=== PATIENT | male | born 1960 | race African-American/Black ===

== ENCOUNTER 2017-05-01 01:11 | Observation (INO) | payer SELFPAY ==
[~2017-05-01] VITALS: Ht 180.3 cm; Wt 89.0 kg
[2017-05-01 01:17] VITALS: BP 160/95; PULSE 72; RESP 18; TEMP 97.9; O2SAT 98
[2017-05-01] MEDS ORDERED: ENAL20TA PO (01:26)
[2017-05-01] MEDS ORDERED: AMLO5TAB2 PO (01:26)
[2017-05-01] MEDS ORDERED: ATEN50TA PO (01:26)
[2017-05-01 01:52] LABS: AUTOMATED NEUTROPHIL # 2.2 TH/MM3 (1.8-7.7); BASOPHIL % 0.6 % (0.0-2.0); EOSINOPHIL # 0.2 TH/MM3 (0-0.4); EOSINOPHIL % 2.8 % (0.0-4.0); HEMATOCRIT 45.6 % (39.0-51.0); HEMO FLAGS DIFF FINAL; LYMPH % 47.4 % (9.0-44.0); LYMPHOCYTE # 2.8 TH/MM3 (1.0-4.8); MEAN CELL VOLUME 83.7 FL (80.0-100.0); MEAN CORPUSCULAR HEMOGLOBIN 27.3 PG (27.0-34.0); MEAN CORPUSCULAR HGB CONC 32.7 % (32.0-36.0); NEUT % 37.2 % (16.0-70.0); PLATELET COUNT 239 TH/MM3 (150-450); RED BLOOD COUNT 5.45 MIL/MM3 (4.50-5.90); RED CELL DISTRIBUTION WIDTH 14.7 % (11.6-17.2); WHITE BLOOD COUNT 5.8 TH/MM3 (4.0-11.0)
--- NOTE | 2017-05-01 01:59 | RADRPT ---
EXAM DATE/TIME: 05/01/2017 01:44 [facility] COMPARISON: No previous studies available for comparison. INDICATIONS : Palpitations. MEDICAL HISTORY : Hypertension. SURGICAL HISTORY : None. ENCOUNTER: Initial ACUITY: 1 day PAIN SCORE: 0/10 LOCATION: Bilateral chest FINDINGS: A single view of the chest demonstrates the lungs to be symmetrically aerated without evidence of mas s, infiltrate or effusion. The cardiomediastinal contours are unremarkable. Osseous structures are intact. CONCLUSION: The lungs are clear. Avni Topete MD on May 01, 2017 at 1:57 Board Certified Radiologist. This report was verified electronically.
[2017-05-01 02:07] LABS: ALT (GPT) 17 U/L (12-78); ANION GAP 5 MEQ/L (5-15); AST (GOT) 17 U/L (15-37); BLOOD UREA NITROGEN 12 MG/DL (7-18); CHLORIDE 100 MEQ/L (98-107); GLOMERULAR FILTRATION RATE 64 ML/MIN (>89); POTASSIUM 3.5 MEQ/L (3.5-5.1); SODIUM (NA) 137 MEQ/L (136-145)
[2017-05-01 02:11] LABS: ALKALINE PHOSPHATASE 82 U/L (45-117); TOTAL BILIRUBIN ADULT 0.3 MG/DL (0.2-1.0)
--- NOTE | 2017-05-01 02:21 | PD ---
HPI Chief Complaint: Cardiac Complaint Time Seen by Provider: 01:22 Travel History International Travel<30 days: No Contact w/Intl Traveler<30days: [place] Traveled to: [place] Traveled to known affect area: No History of Present Illness HPI Is a 56-year-old otherwise healthy man presents to the emergency department after he woke up from sleep with palpitations. Denies any anxiety. No chest pain. No shortness of breath. No dizziness. Itching otherwise had been feeling completely well and healthy. His a history of high blood pressure. No other complaints. Is better now. History Past Medical History Narrative Medical Hypertension Past Surgical History Surgical History: No Previous Surgery Social History Alcohol Use: No Tobacco Use: No Allergies-Medications (Allergen,Severity, Reaction): Coded Allergies: No Known Allergies (Unverified , 05/01/17) Reported Meds & Prescriptions Reported Meds & Active Scripts Active Reported Enalapril (Enalapril Maleate) 20 Mg Tab 20 Mg PO BID Amlodipine (Amlodipine Besylate) 5 Mg Tab 5 Mg PO DAILY Atenolol 50 Mg Tab 50 Mg PO DAILY Review of Systems Except as stated in HPI: all other systems reviewed are Neg Physical Exam Narrative GENERAL: 56-year-old man, no acute distress. SKIN: Focused skin assessment warm/dry. HEAD: Atraumatic. Normocephalic. EYES: Pupils equal and round. No scleral icterus. No injection or drainage. ENT: No nasal bleeding or discharge. Mucous membranes pink and moist. NECK: Trachea midline. No JVD. CARDIOVASCULAR: Regular rate and rhythm. No murmur appreciated. RESPIRATORY: No accessory muscle use. Clear to auscultation. Breath sounds equal bilaterally. GASTROINTESTINAL: Abdomen soft, non-tender, nondistended. Hepatic and splenic margins not palpable. MUSCULOSKELETAL: No obvious deformities. No clubbing. No cyanosis. No edema. NEUROLOGICAL: Awake and alert. No obvious cranial nerve deficits. Motor grossly within normal limits. Normal speech. PSYCHIATRIC: Appropriate mood and affect; insight and judgment normal. Data Data Last Documented VS Vital Signs Date Time Temp Pulse Resp B/P (MAP) Pulse Ox O2 Delivery O2 Flow Rate FiO2 05/01/17 01:21 72 05/01/17 01:17 97.9 18 160/95 (116) 98 Orders Orders Chest, Single Ap (05/01/17 ) Complete Blood Count With Diff (05/01/17 01:29) Comprehensive Metabolic Panel (05/01/17 01:29) Troponin I (05/01/17 01:29) Electrocardiogram (05/01/17 ) Iv Access Insert/Monitor (05/01/17 01:29) Troponin I (05/01/17 04:30) Labs Laboratory Tests Test 05/01/17 01:34 05/01/17 04:30 White Blood Count 5.8 TH/MM3 Red Blood Count 5.45 MIL/MM3 Hemoglobin 14.9 GM/DL Hematocrit 45.6 % Mean Corpuscular Volume 83.7 FL Mean Corpuscular Hemoglobin 27.3 PG Mean Corpuscular Hemoglobin Concent 32.7 % Red Cell Distribution Width 14.7 % Platelet Count 239 TH/MM3 Mean Platelet Volume 8.4 FL Neutrophils (%) (Auto) 37.2 % Lymphocytes (%) (Auto) 47.4 % Monocytes (%) (Auto) 12.0 % Eosinophils (%) (Auto) 2.8 % Basophils (%) (Auto) 0.6 % Neutrophils # (Auto) 2.2 TH/MM3 Lymphocytes # (Auto) 2.8 TH/MM3 Monocytes # (Auto) 0.7 TH/MM3 Eosinophils # (Auto) 0.2 TH/MM3 Basophils # (Auto) 0.0 TH/MM3 CBC Comment DIFF FINAL Differential Comment Blood Urea Nitrogen 12 MG/DL Creatinine 1.18 MG/DL Random Glucose 149 MG/DL Total Protein 8.4 GM/DL Albumin 3.8 GM/DL Calcium Level 9.2 MG/DL Alkaline Phosphatase 82 U/L Aspartate Amino Transf (AST/SGOT) 17 U/L Alanine Aminotransferase (ALT/SGPT) 17 U/L Total Bilirubin 0.3 MG/DL Sodium Level 137 MEQ/L Potassium Level 3.5 MEQ/L Chloride Level 100 MEQ/L Carbon Dioxide Level 32.0 MEQ/L Anion Gap 5 MEQ/L Estimat Glomerular Filtration Rate 64 ML/MIN Troponin I 0.09 NG/ML 0.11 NG/ML [facility] Medical Decision Making Medical Screen Exam Complete: Yes Emergency Medical Condition: Yes Interpretation(s) My review of EKG: Normal sinus rhythm at a rate of 72, leftward axis, normal intervals, no definite evidence of acute ischemia. LABS: CBC is unremarkable Differential Diagnosis Palpitations, arrhythmia, V. tach, V. fib, SVT, PE, other Narrative Course Medical decision making This is a 56 old man a pad palpitations with some minimal chest discomfort woke him up from sleep. Troponins remained minimally elevated. I'm not sure this is related or not. Possibly some and a ventricular arrhythmia. Much less likely ACS. Plan on admitting for serial cardiac enzymes. Anson Rose MD May 01, 2017 02:21
[2017-05-01] MEDS ORDERED: HYDR25TA5 PO (05:56)
[2017-05-01] MEDS ORDERED: ENOXAPARIN SODIUM 40 MG/0.4 ML SYRINGE SQ SCH (06:00)
[2017-05-01] MEDS ORDERED: NITROGLYCERIN 0.4 MG SL 25 TABS/BTL SL PRN (06:00)
[2017-05-01] MEDS ORDERED: ACETAMINOPHEN 500 MG CPLT PO PRN (06:00)
--- NOTE | 2017-05-01 06:15 | HHI.HP ---
HPI Service Family Medicine Primary Care Physician Unknown Admission Diagnosis palpitations, elevated troponin Diagnoses: International Travel<30 Days: No Contact w/Intl Traveler<30days: [place] Traveled to: [facility] Known Affected Area: No History of Present Illness 56 yr old [place] M w/ HTN presents to the ED with palpitations. Reports that he had tea w/ salt this evening, felt his blood pressure going up. Took his BP, 170/95, took analapril, decreased BP to 135/85. Feel asleep and around 1 am this morning, he woke up with palpitations. [place] his heart rate increased and tried deep breathing with improvement. His sister became concerned and called 911. He took an aspirin while on the way to the ED. Denies CP, SOB, headache, and vision changes. No hx of [place] or stroke. Never smoker and denies drug use. He reports having a similar episode 12 years ago when he was going through a divorce. He feels like this recent episode could have possibly been precipitated by stress from an unpleasant phone call he had before going to bed. He is unsure if he had anxiety or a panic attack. He is here visiting from [place]. He has been in the [place] for about a week and staying with his sister. (Gaby Sher MD R1) Review of Systems Other per HPI (Gaby Sher MD R1) Past Family Social History Past Medical History HTN Past Surgical History None (Gaby Sher MD R1) Allergies: Coded Allergies: No Known Allergies (Unverified , 05/01/17) Family History Father- HTN, DM, at 70 from [place] Mother- HTN, still alive, 76 Social History From [place], visiting sister, denies smoking, alcohol use, and drug use (Gaby Sher MD R1) Physical Exam Vital Signs Vital Signs Date Time Temp Pulse Resp B/P (MAP) Pulse Ox O2 Delivery O2 Flow Rate FiO2 05/01/17 01:21 72 05/01/17 01:17 97.9 72 18 160/95 (116) 98 Physical Exam GENERAL: Well-nourished, well-developed patient, pleasant, in NAD SKIN: Warm and dry. EYES: PERRLA, EOMI CARDIOVASCULAR: RRR, no m/r/g RESPIRATORY: CTAB, no crackles or wheezes GASTROINTESTINAL: Abdomen soft, non-tender, nondistended, positive BS EXTREMITIES: No cyanosis, or edema. Laboratory Laboratory Tests Test 05/01/17 01:34 05/01/17 04:30 White Blood Count 5.8 Red Blood Count 5.45 Hemoglobin 14.9 Hematocrit 45.6 Mean Corpuscular Volume 83.7 Mean Corpuscular Hemoglobin 27.3 Mean Corpuscular Hemoglobin Concent 32.7 Red Cell Distribution Width 14.7 Platelet Count 239 Mean Platelet Volume 8.4 Neutrophils (%) (Auto) 37.2 Lymphocytes (%) (Auto) 47.4 Monocytes (%) (Auto) 12.0 Eosinophils (%) (Auto) 2.8 Basophils (%) (Auto) 0.6 Neutrophils # (Auto) 2.2 Lymphocytes # (Auto) 2.8 Monocytes # (Auto) 0.7 Eosinophils # (Auto) 0.2 Basophils # (Auto) 0.0 CBC Comment DIFF FINAL Differential Comment Blood Urea Nitrogen 12 Creatinine 1.18 Random Glucose 149 Total Protein 8.4 Albumin 3.8 Calcium Level 9.2 Alkaline Phosphatase 82 Aspartate Amino Transf (AST/SGOT) 17 Alanine Aminotransferase (ALT/SGPT) 17 Total Bilirubin 0.3 Sodium Level 137 Potassium Level 3.5 Chloride Level 100 Carbon Dioxide Level 32.0 Anion Gap 5 Estimat Glomerular Filtration Rate 64 Troponin I 0.09 0.11 (Gaby Sher MD R1) Result Diagram: 05/01/17 0134 05/01/17 0134 Imaging Last 24 hours Impressions Chest X-Ray 05/01/17 0000 Signed Impressions: Service Date/Time: Monday, May 01, 2017 01:44 - CONCLUSION: The lungs are clear. Avni Topete MD (Gaby Sher MD R1) Caprini VTE Risk Assessment Caprini VTE Risk Assessment: No/Low Risk (score <= 1) Caprini Risk Assessment Model Point Value = 1 Point Value = 2 Point Value = 3 Point Value = 5 Age 41-60 Minor surgery BMI > 25 kg/m2 Swollen legs Varicose veins or History of unexplained or recurrent spontaneous Oral contraceptives or hormone replacement Sepsis (< 1 month) Serious lung disease, including pneumonia (< 1 month) Abnormal pulmonary function Acute myocardial infarction Congestive heart failure (< 1 month) History of inflammatory bowel disease Medical patient at bed rest Age 61-74 Arthroscopic surgery Major open surgery (> 45 min) Laparoscopic surgery (> 45 min) Malignancy Confined to bed (> 72 hours) Immobilizing plaster cast Central venous access Age >= 75 History of VTE Family history of VTE Factor V Leiden Prothrombin [id number] Lupus anticoagulant Anticardiolipin antibodies Elevated serum homocysteine Heparin-induced thrombocytopenia Other congenital or acquired thrombophilia Stroke (< 1 month) Elective arthroplasty Hip, pelvis, or leg fracture Acute spinal cord injury (< 1 month) Prophylaxis Regimen Total Risk Factor Score Risk Level Prophylaxis Regimen 0-1 Low Early ambulation 2 Moderate Order ONE of the following: *Sequential Compression Device (SCD) *Heparin 5000 units SQ BID 3-4 Higher Order ONE of the following medications: *Heparin 5000 units SQ TID *Enoxaparin/Lovenox 40 mg SQ daily (WT < 150 kg, CrCl > 30 mL/min) *Enoxaparin/Lovenox 30 mg SQ daily (WT < 150 kg, CrCl > 10-29 mL/min) *Enoxaparin/Lovenox 30 mg SQ BID (WT < 150 kg, CrCl > 30 mL/min) AND/OR *Sequential Compression Device (SCD) 5 or more Highest Order ONE of the following medications: *Heparin 5000 units SQ TID (Preferred with Epidurals) *Enoxaparin/Lovenox 40 mg SQ daily (WT < 150 kg, CrCl > 30 mL/min) *Enoxaparin/Lovenox 30 mg SQ daily (WT < 150 kg, CrCl > 10-29 mL/min) *Enoxaparin/Lovenox 30 mg SQ BID (WT < 150 kg, CrCl > 30 mL/min) AND *Sequential Compression Device (SCD) (Gaby Sher MD R1) Assessment and Plan Assessment and Plan 56 yr old M w/ HTN admitted for cardiac observation, rule out ACS Code Status Full Code Discussed Condition With Dr. Rose and Dr. Peterson (Gaby Sher MD R1) Problem List: (1) Heart palpitations ICD Codes: R00.2 - Palpitations Plan: Stable. No active chest pain. -EKG in ED - normal -CXR normal -Troponin elevated 0.09, 0.11 -D-dimer 0.35 wnl -CBC and BMP wnl -BNP pending -UDS pening -Mg pending -will continue to trend troponin with EKG, consider cardiology consult -Nitroglycerin 0.4 mg SL q5m PRN angina (2) HTN (hypertension) ICD Codes: I10 - Essential (primary) hypertension Plan: Continue home HTN meds -Amlodipine 5mg PO daily -Atenolol 50 mg PO daily -Enalapril 20 mg PO BID -HCTZ 25 mg PO daily (3) Nutrition, metabolism, and development symptoms ICD Codes: R63.8 - Other symptoms and signs concerning food and fluid intake Plan: Fluids: none Diet: heart healthy diet Other: vitals q4h, monitor I & Os, cardiac monitoring/telemetry DVT ppx: lovenox 40 mg sq daily (Gaby Sher MD R1) Gaby Sher MD R1 May 01, 2017 06:15 Lena Guadarrama MD May 01, 2017 14:24
[2017-05-01 06:18] VITALS: BP 132/78; PULSE 88; RESP 18; O2SAT 99
[2017-05-01 06:34] VITALS: BP 133/79; PULSE 66; RESP 18; TEMP 96.4; O2SAT 98
--- NOTE | 2017-05-01 08:11 | HHI.FPPN ---
Subjective Subjective Patient seen and examined with the resident team. Case reviewed and discussed Please refer to resident H&P for further details regarding HPI, ROS, PMH, SurgHx , Fh and SocHx In summary, patient is a 56yoM non-smoker with a history of HTN Patient reportedly took his BP at home when he felt like it was elevated and found it to be 170/95, BP improved later that day Around 0100 woke up to palpitations, patient felt symptomatic for about 15-20 minutes Deep breathing seemed to help Denied chest pain, no shortness of breath Asymptomatic at time of encounter. [facility] Objective Objective Last Impressions Chest X-Ray 05/01/17 0000 Signed Impressions: Service Date/Time: Monday, May 01, 2017 01:44 - CONCLUSION: The lungs are clear. Avni Topete MD Laboratory Tests - Abnormals Test 05/01/17 01:34 05/01/17 04:30 05/01/17 06:15 Lymphocytes (%) (Auto) 47.4 % Monocytes (%) (Auto) 12.0 % Random Glucose 149 MG/DL Total Protein 8.4 GM/DL Estimat Glomerular Filtration Rate 64 ML/MIN Troponin I 0.09 NG/ML 0.11 NG/ML Vital Signs 05/01/17 05/01/17 05/01/17 05/01/17 01:17 01:21 06:18 06:34 Temp 97.9 96.4 Pulse 72 72 88 66 Resp 18 18 18 B/P (MAP) 160/95 (116) 132/78 (96) 133/79 (97) Pulse Ox 98 99 98 O2 Delivery Room Air 05/01/17 06:50 B/P (MAP) Physical exam GENERAL: wdwn male, sitting up in bed, NAD SKIN: Warm and dry. NO rashes, lesions HEAD: Normocephalic. AT EYES: No scleral icterus. No injection or drainage. ENT: OP clear. MMM NECK: Supple, trachea midline. No JVD or lymphadenopathy. CARDIOVASCULAR: Regular rate and rhythm without murmurs, gallops, or rubs. RESPIRATORY: Breath sounds equal bilaterally. No accessory muscle use. GASTROINTESTINAL: Abdomen soft, non-tender, nondistended. MUSCULOSKELETAL: No cyanosis, or edema. No calf tenderness BACK: Nontender without obvious deformity. No CVA tenderness. NEURO: Awake and alert. Normal speech. CN grossly intact. Motor and sensory intact and equal bilaterally. Assessment Assessment 56yoM with: Palpitations Elevated troponin HTN Hyperglycemia PLAN PLAN Trend serial CE Telemetry monitoring UDS 2D echo Check TSH, mag level Cardiology consultation, appreciate recs Resume home meds lovenox for DVT proph Patient seen and examined with the resident team this morning. Case reviewed and discussed Agree with plan of care as discussed with me and documented in the resident note. Lena Guadarrama MD May 01, 2017 08:11
[2017-05-01 08:49] VITALS: BP 153/95; PULSE 71; RESP 20; TEMP 98.2; O2SAT 100
[2017-05-01] MEDS ORDERED: amLODIPine BESYLATE 5 MG TAB PO SCH (09:00)
[2017-05-01] MEDS ORDERED: HYDROCHLOROTHIAZIDE 25 MG TAB PO SCH (09:00)
[2017-05-01] MEDS ORDERED: ENALAPRIL MALEATE 10 MG TAB PO SCH (09:00)
[2017-05-01] MEDS ORDERED: ATENOLOL 50 MG TAB PO SCH (09:00)
[2017-05-01 09:44] LABS: HDL CHOLESTEROL 43.1 MG/DL (40.0-60.0)
--- NOTE | 2017-05-01 12:39 | EKG ---
Date Performed: 05/01/2017 Time Performed: 06:15:10 PTAGE: 56 years EKG: Sinus rhythm LEFT AXIS DEVIATION INCOMPLETE RIGHT BUNDLE BRANCH BLOCK ABNORMAL ECG PREVIOUS TRACING 05/01/17 Since previous tracing, no significant change. DOCTOR: Berhane Wilson Interpretating Date/Time 05/01/2017 12:38:31
--- NOTE | 2017-05-01 12:39 | EKG ---
Date Performed: 05/01/2017 Time Performed: 01:20:10 PTAGE: 56 years EKG: Sinus rhythm MARKED LEFT AXIS DEVIATION POSSIBLE RIGHT VENTRICULAR CONDUCTION DELAY ABNORMAL ECG NO PREVIOUS TRACING DOCTOR: Berhane Wilson Interpretating Date/Time 05/01/2017 12:37:47
[2017-05-01 12:57] VITALS: BP 148/89; PULSE 64; RESP 20; TEMP 98; O2SAT 100
--- NOTE | 2017-05-01 13:04 | MB ---
cc: JP WEAVER MD DATE OF CONSULTATION: 05/01/2017 REASON FOR CONSULTATION: Elevated troponin. HISTORY OF PRESENT ILLNESS The patient is a very pleasant 56-year-old gentleman from [place] who presented with a sensation of his blood pressure going up and palpitations, and he did note some possible anxiety. He presents to the emergency department where initial blood pressures were elevated to 160/95 and his troponins were mildly elevated. Currently he is feeling much better asymptomatic. He has had no chest pain with this episode at all. No more palpitations, lightheadedness, dizziness or syncope. PAST MEDICAL HISTORY Hypertension / anxiety. SOCIAL HISTORY: No alcohol or smoking. CURRENT MEDICATIONS 1. Aspirin 81 milligrams daily. 2. Norvasc 5 mg daily 3. Atenolol 50 mg daily. 4. Vasotec 20 mg b.i.d. ALLERGIES: NO KNOWN DRUG ALLERGIES. PHYSICAL EXAMINATION VITAL SIGNS: Afebrile, pulse 71, respiratory 20, BP 150/95 sating 100. General: Pleasant, fit-appearing -[place] gentleman in no distress. Neck: No JVD. Lungs: Clear to auscultation bilaterally. Cardiovascular: Regular rate and rhythm, no murmurs appreciated. Abdomen: Benign. Extremities: No edema. LABORATORY DATA Sodium 137, potassium 3.5, chloride 100, bicarb 32.0, BUN 12, creatinine 1.18, glucose 149, troponin 0.09, 0.11. EKG shows sinus rhythm with no acute ST or T-wave changes. IMPRESSION: 1. Elevated troponin. The patient's mildly elevated troponin is likely due to his acute hypertension and will have him undergo a nuclear stress test to exclude coronary artery disease. 2. Palpitations. The patient has been on conveyor monitor since last night and thus far has not had any dysrhythmia. This can likely be further worked up as an outpatient. Should the patient's nuclear stress test return to normal, he can be discharged from my standpoint. Thank you again for the opportunity to participate in this patient's care. Jp Weaver MD [facility] /11:37 AM /12:56 PM
[2017-05-01] MEDS ORDERED: REGADENOSON INJ 0.4 MG/5 ML SYR ONE (15:05)
--- NOTE | 2017-05-01 16:41 | RADRPT ---
EXAM DATE/TIME: 05/01/2017 14:32 [facility] COMPARISON: No previous studies available for comparison. INDICATIONS : Palpatations and anxious feeling with elevated blood pressure. Angina. DOSE: 27.2 mCi Tc99m Myoview at stress. 8.5 mCi Tc99m Myoview at rest. 0.4 mg Lexiscan STRESS SYMPTOMS: Dyspnea and headache. EJECTION FRACTION: 57% MEDICAL HISTORY : Hypertension. SURGICAL HISTORY : None. ENCOUNTER: Initial ACUITY: 1 day PAIN SCALE: 0/10 LOCATION: Bilateral chest TECHNIQUE: The patient underwent pharmacologic stress with infusion of prescribed dose. Continuous ECG tracing was monitored during stress. Gated SPECT imaging was performed after stress and conventional SPECT i maging was performed at rest. The examination was performed on a SPECT/CT scanner, both attenuation and non-corrected datasets were reviewed. FINDINGS: DISTRIBUTION: The maximum perfused segment at stress is in the lateral wall. There is a summed stress score of zero . PERFUSION STUDY: The pattern of perfusion at stress is within normal limits. GATED STUDY: There is intact wall motion and thickening without hypokinetic or dyskinetic segments. CONCLUSION: 1. No fixed or reversible wall defects to suggest ischemia or infarction. 2. Normal wall motion and the calculated ejection fraction. RISK CATEGORY: Low (<1% Annual Mortality Rate) Henrique Colin MD on May 01, 2017 at 16:37 Board Certified Radiologist. This report was verified electronically.
--- NOTE | 2017-05-01 17:42 | HHI.DCPOC ---
Discharge Care Plan Diagnosis: (1) Heart palpitations (2) HTN (hypertension) Goals to Promote Your Health * To prevent worsening of your condition and complications * To maintain your health at the optimal level Directions to Meet Your Goals Take your medications as prescribed Follow your dietary instruction Follow activity as directed Keep your appointments as scheduled Take your immunizations and boosters as scheduled If your symptoms worsen call your PCP, if no PCP go to Urgent Care Center or Emergency Room Smoking is Dangerous to Your Health. Avoid second hand smoke Call the 24-hour hour crisis hotline for domestic abuse at Darron Freeman MD, R3 May 01, 2017 17:42
[2017-05-01] MEDS ORDERED: ASPI81CH25 PO (17:50)
[2017-05-01] MEDS ORDERED: ATOR40TA16 PO (17:50)
--- NOTE | 2017-05-01 18:13 | HHI.FPPN ---
Addendum to progress note ADDENDUM Reason for addendum: Additonal documentation Additional information Discussed with patient: Nuclear stress reassuring No arrhythmias appreciated His ASCVD risk is ~11% assuming SBP 130 -recommend ASA 81 and statin -Will plan to discharge patient per Cardiology -Recommended f/u with [facility] and Cardiology -Advised patient may need Holter if symptoms continue Darron Freeman MD, R3 May 01, 2017 18:13
[2017-05-01] MEDS ORDERED: ATORVASTATIN 40 MG TAB PO SCH (21:00)
[2017-05-02] MEDS ORDERED: ASPIRIN 81 MG CHEW TAB PO SCH (09:00)
== END 2017-05-01 18:52 | disposition home or self-care (01) ==
LOC: NEPC 01:11 → NEDA 05:47 → NEPGCP 06:17 → NEDA 06:21 → NEPHCDU 06:44
PROVIDERS: ADMIT Family Medicine; ATTEND Family Medicine
DX: R00.2 Palpitations (principal); I10 Essential (primary) hypertension; R74.8 Abnormal levels of other serum enzymes; R73.9 Hyperglycemia, unspecified; R94.31 Abnormal electrocardiogram [ECG] [EKG]; Z79.899 Other long term (current) drug therapy
CPT/HCPCS: 71010; 78452; 80053; 80061; 80307; 83735; 83880; 84443; 84484; 85025; 85379; 93005; 93017; 96372; 99285; A9502; G0378; J1650; J2785